=== PATIENT | female | born 1955 | race Caucasian/White ===

== ENCOUNTER → 2024-03-19 | Outpatient (CLI) | payer MEDICARE | END | disposition home or self-care (01) | LOC: LABPAT 11:40 | PROVIDERS: ATTEND Orthopaedic Surgery Sports Medicine | CPT/HCPCS: 85610; 85730 ==

== ENCOUNTER → 2025-01-19 | Outpatient (CLI) | payer MEDICARE, OTHER ==
[2025-01-19 11:01] LABS: INR 0.9 (<1.2); Partial Thromboplastin Time 24.3 sec (22.0-30.0); Prothrombin Time 10.3 sec (10.0-12.5)
[2025-01-19 15:15] LABS: HCT 41.3 % (37.2-46.3); HGB 13.8 g/dL (12.0-15.0); MCH 30.9 pg (27.0-32.0); MCHC 33.4 g/dL (32.0-37.0); MCV 92.6 FL (80.0-97.0); Mean Platelet Volume 10.1 FL (9.5-12.2); NRBC Per 100 WBC 0 X 10*3/uL (0.00-0.01); Platelet Count 286 X 10*3/uL (140-440); RBC 4.46 X 10*6/uL (4.10-5.20); RDW 13.2 % (11.5-14.5); WBC 7.39 X 10*3/uL (4.50-10.00)
[2025-01-19 15:32] LABS: ALT 16 U/L (8-44); AST 19 U/L (13-35); Albumin 4.4 g/dL (3.8-4.9); Alkaline Phosphatase 62 U/L (41-126); Calcium 9.9 mg/dL (8.7-10.3); Carbon Dioxide 26.3 mmol/L (21.6-31.8); Chloride 102 mmol/L (96-109); Globulin 2.2 g/dL (1.6-3.3); Glucose 106 mg/dL (70-110); Potassium 5.3 mmol/L (3.5-5.5); Sodium 140 mmol/L (135-145); Total Bilirubin 0.6 mg/dL (0.3-1.2); Total Protein 6.6 g/dL (6.2-8.2)
== END | disposition home or self-care (01) ==
LOC: LABPAT 09:11
PROVIDERS: ATTEND Orthopaedic Surgery Sports Medicine
DX: Z01.812 Encounter for preprocedural laboratory examination (principal)
CPT/HCPCS: 80053; 85027; 85610; 85730; 87070; 93005

== ENCOUNTER 2025-02-12 05:40 | Day surgery (SDC) | payer MEDICARE, OTHER ==
[~2025-02-12 05:40] MED LIST: TRANEXAMIC 1,000 MG/100ML-NACL 1,000 MG in SALINE 1 100ML.BAG IVPB PRN
[2025-02-12] MEDS ORDERED: LIDOCAINE 1% (10MG/ML) FOR IV START INTRADERMA PRN (06:08)
[2025-02-12] MEDS: LACTATED RINGERS 1,000 ML IV SCH ×3 (06:46→12:15)
[2025-02-12] MEDS: IV FLUID CONTINUATION 1,000 ML IV ONE (06:46)
[2025-02-12] MEDS: ACETAMINOPHEN TAB 500 MG TAB PO PRN (06:48)
[2025-02-12] MEDS: GABAPENTIN 300 MG CAP PO PRN (06:48)
[2025-02-12] MEDS: MELOXICAM 7.5 MG TAB PO PRN (06:48)
[2025-02-12] MEDS: ONDANSETRON 4 MG/2 ML VIAL IVP PRN (06:49)
[2025-02-12] MEDS: MIDAZOLAM 2 MG/2 ML VIAL IV ONE (07:02)
[2025-02-12] MEDS ORDERED: fentaNYL (PF) 50 MCG/ML 2 ML AMP ONE (07:25)
[2025-02-12] MEDS ORDERED: MIDAZOLAM 2 MG/2 ML VIAL ONE (07:25)
[2025-02-12] MEDS ORDERED: ROPIVACAINE 5 MG/ML 30 ML VIAL ONE (07:25)
[2025-02-12] MEDS ORDERED: GLYCOPYRROLATE 0.2 MG/ML 2 ML VIAL ONE (07:25)
[2025-02-12] MEDS ORDERED: PHENYLEPHRINE-0.9% NACL SYG 1,000 MCG/10 ML SYRINGE ONE (07:25)
[2025-02-12] MEDS ORDERED: KETAMINE HCL IN 0.9 % NACL 50 MG/5 ML SYRINGE ONE (07:25)
[2025-02-12] MEDS ORDERED: TRANEXAMIC 1,000 MG/100ML-NACL PREMIX BAG ONE (07:25)
[2025-02-12] MEDS ORDERED: PROPOFOL 10 MG/ML 20 ML VIAL IV ONE (07:25)
[2025-02-12] MEDS ORDERED: DEXAMETHASONE SOD PHOSPHATE 4 MG/ML 1 ML VIAL ONE (07:25)
[2025-02-12] MEDS: ceFAZolin 3,000 MG in SODIUM CHLORIDE 0.9% IRRIGATIO 3,000 ML IRRIGATION ONE (08:03)
[2025-02-12] MEDS: LACTATED RINGERS 1,000 ML IV ONE (09:27)
[2025-02-12] MEDS: HYDROmorphone 0.5 MG/0.5 ML SYRINGE IVP PRN ×2 (10:02→22:26)
[2025-02-12] MEDS ORDERED: HYDROmorphone 0.5 MG/0.5 ML SYRINGE IVP PRN ×2 (10:03)
[2025-02-12] MEDS ORDERED: MAGNESIUM HYDROXIDE 2,400 MG/30 ML CUP PO PRN (10:03)
[2025-02-12] MEDS ORDERED: NA PHOS,M-B/NA PHOS,DI-BA 133 ML ENEMA RECTAL PRN (10:03)
[2025-02-12] MEDS ORDERED: ONDANSETRON 4 MG/2 ML VIAL IVP PRN (10:03)
[2025-02-12] MEDS ORDERED: NALOXONE 0.4 MG/ML 1 ML VIAL IV PRN (10:03)
[2025-02-12] MEDS ORDERED: ACETAMINOPHEN TAB 325 MG TAB PO PRN (10:03)
--- NOTE | 2025-02-12 10:10 | XR ---
EXAMINATION TYPE: XR knee limited RT DATE OF EXAM: 02/12/2025 CLINICAL HISTORY: Postoperative evaluation Two views of the right knee are submitted. Identified are changes of total knee arthroplasty with femoral and tibial components appearing well seated. Postsurgical soft tissue changes are noted. Alignment is anatomic. [facility], , 02/12/2025 10:07 AM
[2025-02-12] MEDS: ROPIVACAINE 1,100 MG, SODIUM CHLORIDE 0.9% 500 ML 330 ML, EMPTY PAIN BALL 1 EACH MISCELLANE PRN (10:17)
--- NOTE | 2025-02-12 10:51 | OP ---
OPERATIVE REPORT DATE OF SERVICE : 02/12/2025 ROTARY DRUM TANNER: Taiwo Hsieh PA-C PREOPERATIVE DIAGNOSIS: Right knee osteoarthrosis. POSTOPERATIVE DIAGNOSIS: Right knee osteoarthrosis. OPERATION: Right total knee arthroplasty. ANESTHESIA: Spinal sedation. ESTIMATED BLOOD LOSS: 100 mL. TOURNIQUET TIME: 65 minutes at 250 mmHg. COMPLICATIONS: None apparent. DRAINS: None. DISPOSITION: Postanesthesia care unit. INDICATIONS: Fior is a very pleasant 69-year-old female with longstanding history of right knee pain. History and physical examination are consistent with advanced right knee osteoarthrosis. She has been through significant operative management up to this point. Further treatment options were discussed, and she has decided to go forward with right total knee arthroplasty. The risks of the procedure were discussed with her in detail. These risks include, but are not limited to risk of infection, nerve damage, bleeding, pain, and a small risk of deep vein thrombosis, which could lead to fatal pulmonary embolism. There is also small risk of loosening of the implant, which could require revision operation. The patient understands these risks. All of her questions with regard to the risks of procedure were answered to her satisfaction. Appropriate informed consent was obtained. DESCRIPTION OF PROCEDURE: The patient was identified in preoperative holding area. Surgical site was marked by both the patient and myself. She was given 2 g of Ancef IV prophylactic purposes. She was then transferred to the operative suite. She was placed supine on the operating table. A spinal anesthetic was then administered and dosed per the anesthesia without apparent complication. Examination under anesthesia was then performed. The patient was 2-3 degrees shy of full extension. She had 95 degrees of flexion in the medial collateral ligament, lateral collateral ligament. Posterior cruciate ligaments were stable. A tourniquet was then placed high on the right upper thigh well-padded in preparation for surgery. The patient's right lower extremity was then prepped and draped in usual sterile fashion. Standard surgical pause was undertaken to ensure that we were operating the correct site and that appropriate preoperative antibiotics were given. All staff were in agreement, and we proceeded. The outlines of the patella marked with a surgical pen. A planned 12 cm vertical incision centered over the patella was marked with a surgical pen. Leg was then exsanguinated with an Esmarch dressing. The knee was then flexed, and the tourniquet was inflated to 250 mmHg. Total tourniquet time for the procedure was 65 minutes. Incision was then made with a 10-blade scalpel. Dissection was carried down sharply to the overlying fascia. Great care was taken to minimize the skin flaps. The knee was then exposed using a standard medial parapatellar approach. A small cuff of quadriceps tendon was then left for suture suturing. She was in a bit of varus preoperatively. A standard medial release was then made. Superficial medial collateral ligament dissected off the bone around to the posterior aspect of the proximal tibia. The medial meniscus was then excised as well. The lateral meniscus was also released anteriorly. The leg was then externally rotated. The patella was everted. The knee was flexed. Retractors were then placed to protect the collateral ligaments. I then proceeded to remove the infrapatellar fat pad. This was excised sharply tangentially fibers of the patellar tendon. I then proceeded to remove the peripheral osteophytes. This was done with a rongeur. I then proceeded with the distal femoral resection. She did have near full extension. A planned 9 mm resection was then done. The femoral canal was then entered in the midline the femur approximately 10 mm anterior to the origin of the posterior cruciate ligament. The kate was then advanced down the center of the femur and placed intramedullary. Based on the preoperative radiographs, the angle between the anatomic and mechanical axis of the femur was approximately 4 to 5 degrees. The valgus angle of the distal femoral cutting guide was then set at 4 degrees for the right knee. The distal femoral cutting guide was then advanced over the intramedullary kate. This was seated firmly against the femur. I then as mentioned planned to take 9 mm off the distal femur. The cutting block was then secured onto the femur with pins. The jig was then removed. The distal femoral cut was made through the slot of the block. The pins were then removed and the distal femoral cutting block was removed. The accuracy of the distal femoral cuts was checked with 2 flat bars. I then proceeded with femoral sizing. Posterior referencing sizing guide was held firmly against the resected distal surface of the femur. The posterior condyles were resting on the posterior plane of the guide. The sizing guide was then placed on the anterior femur. The size was measured as a size 7. I then assessed for femoral rotation. Plan was for 3 degrees of external rotation. 3 degrees of external rotation was placed onto the jig. These holes were then marked. We then confirmed the rotation by three separate methods. This was done using epicondylar axis as well as Whitesides line and posterior referencing. It was deemed that the external rotation was proper. I then went forward with placement of the femoral cutting block. This was placed over the previously placed pin holes. The Hernandez wing was then placed onto the anterior slots to ensure that we would not notch the anterior femur with the anterior femoral cut. I then proceeded with the anterior femoral cut. This was flush with the anterior cortex of the femur. The posterior cuts were then made followed by the anterior chamfer cut, then the posterior chamfer cut. The cutting block was then removed. Throughout the resection, the collateral ligaments were protected with retractors. I then placed a trial size 7 femur. It was slightly wide, but the narrow fit very nicely, and it fit flush with the distal end of the femur. The drill holes were then made. I then proceeded with the tibial cut. I planned for cruciate-retaining knee. The guide was placed and set for varus-valgus and for slope. Height was set for approximate 2 mm resection from the medial tibial plateau, which was the lower side. I was happy with the alignment and amount of resection. The cutting block was then pinned to the proximal tibia. The alignment kate was removed and the proximal tibia was resected with reciprocating saw. Again, this was done with retractors protecting the collateral ligaments as well as the posterior cruciate ligament. I then proceeded to evaluate the flexion and extension gaps. A 10 mm block was then placed. The flexion and extension gaps were equal. I then proceeded with resection of posterior osteophytes. She had very extensive posterior osteophytes. This was done using a curved osteotome. This resected the posterior osteophytes and posterior capsular stripping was done off the posterior aspect of the femur at this time. The osteophytes were then removed. I then proceeded with resection of the patella. The thickness of the patella was measured using the caliper. The thickness was 22 mm. The thickness of the anticipated patellar dome was taken into account. Resection was then performed and confirmed to be equal in 4 quadrants using a caliper. Approximately 14 mm of bone remained after resection. A 29 x 8 mm standard patellar trial was then placed. The holes were drilled and the trial was then placed. I then proceeded with sizing tibial plate. A size D tibial plate fit very nicely. I then placed the trial femur, the tibial tray and the patellar button. A 10 mm trial tibial insert was also placed. The components fit very nicely. She had full extension and flexion. The extension and flexion gaps were equal and stable to both varus and valgus stress. The patella tracked appropriately. The tibial tray rotation was then marked with a Bovie. This was externally rotated properly. I then proceeded with tibial preparation. I first drilled the femoral holes and removed the femoral component. The tibial tray was then set for proper external rotation as well as medial and lateral placement onto the tibia. It was then pinned into place. I then proceeded with punching the keel. I then decided to proceed with cementing of all our components. The knee was thoroughly irrigated with sterile saline solution via pulse lavage. The lateral geniculate artery was identified and cauterized. All blood was removed from the bone of the tibia femur and patella with pulse lavage. I then proceeded with cementing. Two packs of antibiotic bone cement prepared on the back table by manager surgical. I then proceeded with cementing of the tibia first. The cement was impacted in the keel as well as deeply seated into the bone. A second coat cement was then placed. The tibia was then impacted into place. Excess cement was removed with [place]'s and jokers. I then proceeded with cementing of the femoral component. The femoral component was also cemented using standard technique. Excess cement was removed. A 10 mm trial insert was then placed into the knee. It was brought into full extension with a constant axial load placed until the cement had hardened. The patellar component was then cemented. This held firmly with compressive device until the cement had dried. When the cement had dried, the knee was taken out of extension. All excess cement was removed from around the prosthesis. I then trialed the knee with a 10 mm insert. Flexion and extension gaps were appropriate. The knee was stable. It came into full extension. I decided to go for the 10 mm medial congruent cross-linked cruciate- retaining tibial insert. Polyethylene was then placed onto the tibial tray and locked into place. The knee was then reduced. The knee was again further irrigated with sterile saline solution with antibiotic added. The tourniquet was then deflated. Total tourniquet time for the procedure was 65 minutes at 250 mmHg. Final components were Nataliia Persona size 7 narrow cruciate-retaining femoral component, a size D tibial tray, a 10 mm medial congruent cruciate-retaining polyethylene insert, and a 29 x 8 mm patella. I then proceeded with closure. Again, the knee was thoroughly irrigated. The quadriceps tendon and the medial retinaculum were reapproximated with #2 Ethibond suture. The extensor mechanism was then closed with a running #2 Quill suture. Subcutaneous tissues were closed with 2-0 Vicryl interrupted suture. The skin was closed with a running 3-0 Quill suture. Dermabond was applied to the incision. Sterile compressive dressings were applied. All sponge and needle counts deemed correct prior to closure. The patient tolerated the procedure without apparent complication. She was transferred to recovery room in stable condition. MMODL / IJN: [id number] /
[2025-02-12] MEDS: DEXAMETHASONE SOD PHOSPHATE 4 MG/ML 1 ML VIAL IV ONE (11:24)
[2025-02-12] MEDS: droPERidol 2.5 MG/ML VIAL IVP ONE (11:24)
[2025-02-12] MEDS: ONDANSETRON 4 MG/2 ML VIAL IVP ONE (11:25)
[2025-02-12] MEDS: MAGNESIUM OXIDE 400 MG TAB PO SCH (15:57)
[2025-02-12] MEDS: HYDROcodone/APAP 7.5-325MG 1 EACH TAB PO PRN (21:23)
[2025-02-12] MEDS: ASPIRIN 81 MG PO SCH (21:30)
[2025-02-12] MEDS: VITAMIN E (DL,TOCOPHERYL ACET) 400 UNIT (180 MG) CAP PO SCH (21:31)
[2025-02-12] MEDS: VIT B COMP PO SCH (21:31)
[2025-02-12] MEDS: SENNOSIDES-DOCUSATE SODIUM 1 EACH TAB PO SCH (21:31)
[2025-02-12] MEDS: FOLIC AC PO SCH (21:31)
[2025-02-12] MEDS: LEVOTHYROXINE 50 MCG TAB PO SCH (21:31)
[2025-02-12] MEDS: HERB PO SCH (21:31)
[2025-02-12] MEDS: [UNRECOGNIZED DRUG - OTHER] PO SCH (21:31)
--- NOTE | 2025-02-13 00:51 | CONS ---
CONSULTATION REASON FOR CONSULTATION: Advice regarding recent pneumonia, other multiple medical issues, requested by orthopedist. HISTORY OF PRESENT ILLNESS: This 69-year-old woman with a past medical history of multiple medical problems including hypothyroidism, was recently admitted to [facility] with pneumonia. The patient improved significantly. The patient underwent a right total knee arthroplasty. There is no history of fever, rigors, or chills. No history of cough or sputum at this time. PAST MEDICAL HISTORY: Hypothyroidism, history of recent pneumonia. Rest of history and chart are also reviewed. HOME MEDICATIONS: Reviewed. Include levothyroxine. Dose and rest medications reviewed. ALLERGIES: None known. FAMILY HISTORY: No history of heart disease or strokes in the family. SOCIAL HISTORY: Previous smoking. REVIEW OF SYSTEMS: 14-point review of systems is negative except as mentioned earlier. PHYSICAL EXAMINATION: VITAL SIGNS: Pulse is 66, blood pressure 131/81, and respirations 16. HEENT: Conjunctivae normal. NECK: No jugular venous distention. CARDIOVASCULAR: S1, S2. RESPIRATION: Breath sounds diminished at the bases. No rhonchi, no crackles. ABDOMEN: Soft, nontender. EXTREMITIES: Legs, status post right total knee arthroplasty. NERVOUS SYSTEM: Nonfocal. LABORATORY DATA: The previous labs in the computer reviewed within normal limits. ASSESSMENT: 1. Status post right total knee arthroplasty. 2. History of recent pneumonia, improved. 3. Hypothyroidism. 4. History of traumatic brain injury. 5. Remote history of nicotine dependence. RECOMMENDATION: This 69-year-old woman presented after surgery is medically stable. Recommend to resume the home medications, incentive spirometry, and DVT prophylaxis. We will follow the patient closely with you. The patient may be asked to follow up with the primary physician closely after discharge. Pain management. MMODL / IJN: [id number] /
--- NOTE | 2025-02-13 06:44 | P.ANPRN ---
Procedure Note - Anesthesia - Nerve Block Performed Right Adductor Canal Infusion Time Out Performed: Yes Date of Procedure: 02/12/25 Procedure Start Time: : Procedure Stop Time: : Location of Patient: PreOp Indication: Acute Post-Operative Pain, Requested by Surgeon Sedation Type: Sedate with meaningful contact maintained Preparation: Sterile Prep, Sterile Dressing Position: Supine Catheter: Indwelling Needle Types: Pajunk Needle Gauge: 21 Ultrasound used to visualize needle placement: Yes Ultrasound used to observe medication spread: Yes Blood Aspirated: No Pain Paresthesia on Injection Noted: No Resistance on Injection: Normal Image Stored and Saved: Yes Events: Uneventful and Well Tolerated (Ropivacaine 0.5% 20 cc was dexamethasone 4 mg)
--- NOTE | 2025-02-13 06:45 | P.ANPRN ---
Procedure Note - Anesthesia - Nerve Block Performed Right iPack Single Time Out Performed: Yes Date of Procedure: 02/12/25 Procedure Start Time: 07:10 Procedure Stop Time: 07:12 Location of Patient: PreOp Indication: Acute Post-Operative Pain, Requested by Surgeon Sedation Type: Sedate with meaningful contact maintained Preparation: Sterile Prep Position: Left Lateral Needle Types: Pajunk Needle Gauge: 21 Ultrasound used to visualize needle placement: Yes Ultrasound used to observe medication spread: Yes Blood Aspirated: No Pain Paresthesia on Injection Noted: No Resistance on Injection: Normal Image Stored and Saved: Yes Events: Uneventful and Well Tolerated (Ropivacaine 0.5% 20 cc plus dexamethasone 4 mg)
[2025-02-13] MEDS: HYDROcodone/APAP 7.5-325MG 1 EACH TAB PO PRN (06:55)
--- NOTE | 2025-02-13 06:56 | P.PN ---
Progress Note - Text 02/13/25 620am Status post total knee replacement by Dr. Hernandez. Patient has an postop pain control with a solution running at 8 cc of 1-2. Dressing clean dry and intact. Plan to continue On-Q pump infusion
[2025-02-13] MEDS: CALCIUM CARB-VIT D 500 MG-5 MCG TAB PO SCH (08:36)
[2025-02-13] MEDS: CHOLECALCIFEROL 25 MCG (1000 IU) TABLET PO SCH (08:37)
[2025-02-13] MEDS: FISH PO SCH (08:38)
[2025-02-13] MEDS: [UNRECOGNIZED DRUG - OTHER] PO SCH (08:38)
[2025-02-13] MEDS: DHA PO SCH (08:38)
[2025-02-13] MEDS: VIT A,C & E-LUTEIN-MINERALS 1 EACH TAB PO SCH (08:38)
[2025-02-13] MEDS: DPA PO SCH (08:38)
[2025-02-13] MEDS: COQ10 PO SCH (08:38)
[2025-02-13] MEDS: EPA PO SCH (08:38)
[2025-02-13] MEDS: OMEGA PO SCH (08:38)
[2025-02-13 09:32] LABS: Basophils # (A) 0.02 X 10*3/uL (0.00-0.10); Basophils % (A) 0.2 %; Eosinophils # (A) 0.01 X 10*3/uL (0.04-0.35); Eosinophils % (A) 0.1 %; HCT 33.0 % (37.2-46.3); HGB 10.9 g/dL (12.0-15.0); Immature Grans, Automated 0.40 %; Lymphocytes # (A) 1.90 X 10*3/uL (0.90-5.00); Lymphocytes % (A) 16.1 %; MCH 29.9 pg (27.0-32.0); MCHC 33.0 g/dL (32.0-37.0); MCV 90.4 FL (80.0-97.0); Monocytes # (A) 1.05 X 10*3/uL (0.20-1.00); Monocytes % (A) 8.9 %; NRBC Per 100 WBC 0 X 10*3/uL (0.00-0.01); Neutrophils # (A) 8.80 X 10*3/uL (1.80-7.70); Neutrophils % (A) 74.3 %; Platelet Count 227 X 10*3/uL (140-440); RBC 3.65 X 10*6/uL (4.10-5.20); RDW 13.1 % (11.5-14.5); WBC 11.83 X 10*3/uL (4.50-10.00)
[2025-02-13] MEDS: MULTIVITAMINS, THERA 1 EACH TAB PO SCH (11:08)
--- NOTE | 2025-02-13 11:28 | P.PN ---
Progress Note - Text Progress Note Date: 02/13/25 Orthopedics: History of present illness: Patient is a very pleasant 69-year-old female who is seen examined at the bedside for further evaluation of her right knee. She is status post right total knee arthroplasty performed yesterday, 02/12/2025, by Dr. Hernandez. Postoperatively, she is doing quite well. She has been able to ambulate well. Her pain in her right knee is well-controlled. She is very happy with her progress postoperatively. She was considering discharge to a rehabilitation facility, however, given her significant improvement already postoperatively, she feels she may be ready for discharge home tomorrow. She is utilizing an On- Q pain pump per anesthesia. She is very happy with her progress. She is being seen by medicine for her other medical diagnoses. Physical Exam Total Knee Arthroplasty: Status post surgical day number 1 Patient is awake, alert, and oriented 3 Vital signs stable Good chest excursion with deep inspiration and expiration Abdomen soft nontender No signs or symptoms of DVT; no calf pain Dressing is clean, dry, and intact; no erythema, purulence, or signs of infection over the right knee Patient has full foot and ankle motion without difficulty bilateral lower extremities Dorsiflexion, plantar flexion, and extensor hallucis longus positive sustained bilaterally Neurovascular status left lower extremity intact Assessment: Status post right total knee arthroplasty Right knee osteoarthritis Right knee pain Hypothyroidism History TBI Plan: 1. Patient to remain weight-bear as tolerated on the lower extremity with the assistance of a walker; patient may work with physical therapy to increase mobility and ambulation 2. Continue pain control with oral and IV pain medications. Plan to wean off IV medications in anticipation for discharge home tomorrow. 3. Medicine to continue following the patient for her other medical diagnoses 4. Patient to continue with anticoagulation therapy with aspirin 81 mg 1 tab twice daily 5. We'll continue to follow the patient. If she continues to improve, we will plan for discharge home tomorrow. 6. Patient can follow-up with Taiwo Hsieh PA-C or Dr. Stewart Hernandez in 10 days postoperatively at [facility] in 2-3 weeks following discharge
[2025-02-13] MEDS: traMADol 50 MG TAB PO PRN (20:15)
--- NOTE | 2025-02-13 23:39 | PN ---
PROGRESS NOTE DATE OF SERVICE: 02/13/2025 SUBJECTIVE: This is a 69-year-old woman who was admitted after right total knee arthroplasty improving significantly. No chest pain. No palpitation. No swelling is noted. OBJECTIVE: VITAL SIGNS: On exam; pulse 73, blood pressure 102/60, and respirations 18. CHEST: Clear to auscultation. ABDOMEN: Soft. LEGS: Status post knee arthroplasty. LABORATORY DATA: WBC 11.83. ASSESSMENT: 1. Status post right total knee arthroplasty. 2. History of recent pneumonia, improved. 3. Hypothyroidism. 4. History of traumatic brain injury. 5. Remote history of nicotine dependence. RECOMMENDATIONS: Recommend to continue current management and continue with pain management. Continue with incentive spirometry. Continue with DVT prophylaxis, otherwise rest of the recommendations per Orthopedic Surgery. MMODL / IJN: [id number] /
[2025-02-14 02:10] VITALS: RESP 16; TEMP 97.8
[2025-02-14 10:17] VITALS: BP 140/68; PULSE 77
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
[2025-02-15] MEDS ORDERED: LEVOTHYROXINE 25 MCG TAB PO SCH (06:30)
== END 2025-02-14 13:06 | disposition home health service (06) ==
LOC: OR 05:40 → 4SSUR 10:55 → OR 02-14 13:06
PROVIDERS: ATTEND Orthopaedic Surgery Sports Medicine
DX: M17.11 Unilateral primary osteoarthritis, right knee (principal); J18.9 Pneumonia, unspecified organism; E03.9 Hypothyroidism, unspecified; Z87.891 Personal history of nicotine dependence; Z96.651 Presence of right artificial knee joint; Z87.01 Personal history of pneumonia (recurrent); Z87.820 Personal history of traumatic brain injury; Z79.82 Long term (current) use of aspirin; Z79.890 Hormone replacement therapy; Z79.899 Other long term (current) drug therapy
CPT/HCPCS: 27447; 97162; 64448; 64473; 85025; 73560; C1776; C1713; C1751; J2250; J1100; J0690 ×2; J2405; J3010; J2795; J2704; J1171; J2371; J1596

== ENCOUNTER 2025-02-21 11:26 | Emergency (ER) | payer MEDICARE, OTHER ==
[2025-02-21 11:47] VITALS: RESP 20; TEMP 97.8
[2025-02-21] MEDS: SODIUM CHLORIDE 0.9% 1,000 ML IV ONE (12:18)
[2025-02-21] MEDS: KETOROLAC 15 MG/ML 1 ML VIAL IVP STA (12:19)
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
--- NOTE | 2025-02-21 12:22 | XR ---
Right knee HISTORY: Pain COMPARISON: 02/12/2025. TECHNIQUE: 3 views of the right knee were obtained. FINDINGS: There is a total right knee prosthesis in near anatomic alignment. There is no acute fracture or disl ocation. IMPRESSION: 1. No acute change. 2. Total right knee prosthesis [facility] Workstation: [email or web address], 02/21/2025 12:19 PM
[2025-02-21 14:31] VITALS: BP 128/69; PULSE 83
== END 2025-02-21 14:31 | disposition home or self-care (01) ==
LOC: EC 11:26
DX: G89.18 Other acute postprocedural pain (principal)
CPT/HCPCS: 73562; 99283; 96374; 96361; J1885

== ENCOUNTER 2025-02-22 11:42 | Observation (INO) | payer MEDICARE, OTHER ==
[2025-02-22 12:59] LABS: Basophils # (A) 0.06 10*3/uL (0.00-0.10); Basophils % (A) 0.7 %; Eosinophils # (A) 0.03 10*3/uL (0.04-0.35); Eosinophils % (A) 0.4 %; HCT 35.9 % (37.2-46.3); HGB 12.5 g/dL (12.0-15.0); Lymphocytes # (A) 1.52 10*3/uL (0.90-5.00); Lymphocytes % (A) 17.9 %; MCH 31.6 pg (27.0-32.0); MCHC 34.8 g/dL (32.0-37.0); MCV 90.9 fL (80.0-97.0); Monocytes # (A) 0.43 10*3/uL (0.20-1.00); Monocytes % (A) 5.1 %; Neutrophils # (A) 6.45 10*3/uL (1.80-7.70); Neutrophils % (A) 75.7 %; Platelet Count 394 10*3/uL (140-440); RBC 3.95 10*6/uL (4.10-5.20); RDW 13.2 % (11.5-14.5); WBC 8.51 10*3/uL (4.50-10.00)
[2025-02-22 13:00] LABS: Bilirubin,Urine Negative (Negative); Blood,Urine Negative (Negative); Color,Urine Colorless; Glucose,Urine (UA) Negative (Negative); Ketones,Urine Negative (Negative); Leukocyte Esterase,Urine Negative (Negative); Nitrite,Urine Negative (Negative); PH, Urine 7.5 (5.0-8.0); Protein,Urine Negative (Negative); Specific Gravity,Urine 1.003 (1.001-1.035); Urobilinogen,Urine <2.0 mg/dL (<2.0)
[2025-02-22 13:14] LABS: ALT 73 U/L (4-34); AST 48 U/L (14-36); African American GFR (CKD) >90 (>60 ml/min/1.73 sqM); Albumin 4.5 g/dL (3.5-5.0); Alkaline Phosphatase 85 U/L (38-126); Anion Gap 10 mmol/L; Blood Urea Nitrogen 9 mg/dL (7-17); Calcium 10.5 mg/dL (8.4-10.2); Carbon Dioxide 28 mmol/L (22-30); Chloride 99 mmol/L (98-107); Glucose 114 mg/dL (74-99); Non-African American GFR(CKD) >90 (>60 ml/min/1.73 sqM); Potassium 4.1 mmol/L (3.5-5.1); Sodium 137 mmol/L (137-145); Total Protein 6.9 g/dL (6.3-8.2)
[2025-02-22 15:13] LABS: INR 1.0 (<1.2); Partial Thromboplastin Time 23.1 sec (22.0-30.0); Prothrombin Time 10.7 sec (10.0-12.5)
[2025-02-22 15:35] LABS: Acetaminophen <10.0 ug/mL
--- NOTE | 2025-02-22 16:03 | CT ---
EXAMINATION TYPE: CT brain wo con DATE OF EXAM: 02/22/2025 3:53 PM COMPARISON: None. CLINICAL INDICATION: Female, 69 years old with history of dizziness, left leg parasethesias, dizzines s TECHNIQUE: Brain: Axial CT images of the brain were obtained with coronal and sagittal reformats created and rev iewed. Contrast used: None. Oral contrast used: None. CT DLP: 1215.6 mGycm, Automated exposure control for dose reduction was used. FINDINGS: Brain: Extra-axial spaces: No abnormal extra-axial fluid collections. Ventricular system: Dilatation in proportion to cerebral atrophy. Cerebral parenchyma: No acute intraparenchymal hemorrhage or mass effect. The avila-white junction is well differentiated. Scattered hypoattenuating areas are seen within the white matter. Cerebellum: Unremarkable. Mass effect: No evidence of midline shift. Intracranial vasculature: Atherosclerotic calcifications of the intracranial vessels. Soft tissues: Normal. Calvarium/osseous structures: No depressed skull fracture. Paranasal sinuses and mastoid air cells: Mild scattered paranasal sinus disease. Visualized orbits: Orbital contents are intact. IMPRESSION: 1. No acute intracranial process. 2. Nonspecific white matter changes, likely secondary to chronic small vessel ischemic disease. [facility], , 02/22/2025 4:01 PM
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
[2025-02-22] MEDS ORDERED: NALOXONE 0.4 MG/ML 1 ML VIAL IV PRN (16:58)
[2025-02-22] MEDS: SODIUM CHLORIDE 0.9% 1,000 ML IV ONE (17:51)
[2025-02-22] MEDS: SODIUM CHLORIDE 0.9% 1,000 ML IV SCH (17:52)
[2025-02-22] MEDS: CALCIUM CARB-VIT D 500 MG-5 MCG TAB PO SCH (20:30)
[2025-02-22] MEDS: ASCORBIC ACID 500 MG TAB PO SCH (20:30)
[2025-02-22] MEDS: VITAMIN E (DL,TOCOPHERYL ACET) 400 UNIT (180 MG) CAP PO SCH (20:31)
[2025-02-22] MEDS: CHOLECALCIFEROL 25 MCG (1000 IU) TABLET PO SCH (20:31)
[2025-02-22] MEDS: ASPIRIN 81 MG PO SCH (20:57)
[2025-02-22] MEDS: HYDROcodone/APAP 7.5-325MG 1 EACH TAB PO PRN (20:59)
[2025-02-22] MEDS ORDERED: DHA PO SCH (21:00)
[2025-02-22] MEDS ORDERED: [UNRECOGNIZED DRUG - OTHER] PO SCH (21:00)
[2025-02-22] MEDS ORDERED: VIT B COMP PO SCH (21:00)
[2025-02-22] MEDS ORDERED: [UNRECOGNIZED DRUG - OTHER] PO SCH (21:00)
[2025-02-22] MEDS ORDERED: FOLIC AC PO SCH (21:00)
[2025-02-22] MEDS ORDERED: HERB PO SCH (21:00)
[2025-02-22] MEDS ORDERED: EPA PO SCH (21:00)
[2025-02-22] MEDS ORDERED: OMEGA PO SCH (21:00)
[2025-02-22] MEDS ORDERED: FISH PO SCH (21:00)
[2025-02-22] MEDS ORDERED: DPA PO SCH (21:00)
[2025-02-22] MEDS ORDERED: COQ10 PO SCH (21:00)
[2025-02-23] MEDS: LEVOTHYROXINE 50 MCG TAB PO SCH (05:35)
[2025-02-23] MEDS: MAGNESIUM OXIDE 400 MG TAB PO SCH (09:20)
[2025-02-23] MEDS: MULTIVITAMINS, THERA 1 EACH TAB PO SCH (09:20)
[2025-02-23] MEDS: traMADol 50 MG TAB PO SCH (13:20)
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
--- NOTE | 2025-02-23 15:09 | P.PN ---
Progress Note - Text Progress Note Date: 02/23/25 I went to see the patient for dizziness. But patient states she does not need neurology service at this time since she states she had recent knee surgery and was on a lot of pain medication causing her dizziness. She feels the pain medication is culprit. I notified the primary team. If still neurology is needed please reconsult.
[2025-02-23] MEDS: ETODOLAC 400 MG TAB PO PRN (16:48)
[2025-02-23] MEDS: ACETAMINOPHEN TAB 500 MG TAB PO PRN (22:23)
[2025-02-24] MEDS: traMADol 50 MG TAB PO PRN (09:33)
--- NOTE | 2025-02-24 14:32 | P.DS ---
Providers Date of admission: 02/22/25 16:56 Expected date of discharge: 02/24/25 Attending physician: Dick Mills MD Consults: 02/22/25 16:59 Consult Physician Routine Consulting Provider: Stewart Hernandez Consult Reason/Comments: right knee pain, weakness, rehab placementq Do you want consulting provider notified?: Yes, Notify in am Primary care physician: Felix Flanagan Hospital Course: Discharge diagnoses; Right knee pain Recent right total knee replacement Dizziness Inability to take care of herself. Hypothyroidism Hospital course; 69-year-old lady with past medical history significant for right total knee arthroplasty presented the ER because of generalized weakness. Patient stated that she had right knee done on February 16, following that she was of the opinion that was able to take care of herself so she was discharged home with home care. Ongoing home patient had a hard time taking care of herself. Patient was having increasing right knee pain. Patient also complaining of dizziness. Patient denies any chest pain. There is no complaint of shortness of breath. Patient denies any palpitation. There is no complaint of orthopnea or PND. Denies any nausea, vomiting abdominal pain. There is no complaint of headache. Initial lab work done in the ER showed WBC 8.51, hemoglobin 12.5, platelet count 394, sodium 137, potassium 4.1, BUN 9, creatinine 0.46, glucose 114, calcium 10.5, AST 48, ALT 73, alk phos 85, troponin 0.012 UA negative for infection EKG done in the ER showed heart rate of 77, no ST segment elevation or depression seen, no T-wave inversions seen. CT head done showed no acute intracranial process Patient admitted to internal medicine service 02/24. Patient seen examined. PT and OT evaluated, patient is doing much better, does not qualify for rehab. Being discharged home with home care PHYSICAL EXAMINATION: GENERAL: The patient is alert and oriented x3, not in any acute distress. Well developed, well nourished. HEENT: Pupils are round and equally reacting to light. EOMI. No scleral icterus. No conjunctival pallor. Normocephalic, atraumatic. No pharyngeal erythema. No thyromegaly. CARDIOVASCULAR: S1 and S2 present. No murmurs, rubs, or gallops. PULMONARY: Chest is clear to auscultation, no wheezing or crackles. ABDOMEN: Soft, nontender, nondistended, normoactive bowel sounds. No palpable organomegaly. MUSCULOSKELETAL: Right knee surgical incision EXTREMITIES: No cyanosis, clubbing, or pedal edema. NEUROLOGICAL: Gross neurological examination did not reveal any focal deficits. SKIN: No rashes. Dictation was produced using [employer] dictation software. please excuse any grammatical, word or spelling errors. Patient Condition at Discharge: Good Plan - Discharge Summary Discharge Rx Participant: No New Discharge Prescriptions: New Etodolac [Lodine] 400 mg PO BID PRN 7 Days #14 tab PRN Reason: Pain Continue Magnesium 200 tab PO BID Ascorbic Acid [Vitamin C] 250 tab PO BID [place]-3/Dha/Epa/Dpa/Fish/Coq10 [[place]-3 2100 Coq10 Softgel] 1 cap PO BID Calcium Carbonate/Vitamin D3 [Calcium 600 mg-Vit D3 10 mcg (400 Unit)] 1 tab PO BID Ondansetron [Zofran] 4 mg PO Q8HR PRN #21 tab PRN Reason: Nausea Diclofenac Sodium [Voltaren] 75 mg PO BID PRN #30 tab PRN Reason: Pain Acetaminophen Tab [Tylenol] 1,000 mg PO Q4H PRN PRN Reason: Pain Or Fever > 100.5 Sennosides/Docusate Sodium [Senna Plus 8.6-50 mg Softgel] 1 cap PO HS Multivitamin 50+ With Eye Healh 1 tab PO DAILY HYDROcodone/APAP 7.5-325MG [[place] 7.5-325] 0.5 - 2 tab PO Q6HR PRN PRN Reason: Pain Aspirin [Adult Low Dose Aspirin EC] 81 mg PO HS Levothyroxine Sodium [Synthroid] 25 mcg PO MARINO Levothyroxine Sodium [Synthroid] 50 mcg PO DAILY Vitamin E (Dl,Tocopheryl Acet) [Vitamin E (400 Iu = 180 mg)] 400 unit PO BID Vit B Comp/Folic AC/C/Herb 293 [Alive B-Complex Gummy] 1 tab PO BID Cholecalciferol (Vitamin D3) [Vitamin D3 (50 Mcg = 2000 Iu) Chew Tab] 50 mcg PO BID Discharge Medication List Levothyroxine Sodium [Synthroid] 50 mcg PO DAILY 04/07/24 [History] Ascorbic Acid [Vitamin C] 250 tab PO BID 02/06/25 [History] Calcium Carbonate/Vitamin D3 [Calcium 600 mg-Vit D3 10 mcg (400 Unit)] 1 tab PO BID 02/06/25 [History] Cholecalciferol (Vitamin D3) [Vitamin D3 (50 Mcg = 2000 Iu) Chew Tab] 50 mcg PO BID 02/06/25 [History] Magnesium 200 tab PO BID 02/06/25 [History] [place]-3/Dha/Epa/Dpa/Fish/Coq10 [[place]-3 2100 Coq10 Softgel] 1 cap PO BID 02/06/25 [History] Vit B Comp/Folic AC/C/Herb 293 [Alive B-Complex Gummy] 1 tab PO BID 02/06/25 [History] Vitamin E (Dl,Tocopheryl Acet) [Vitamin E (400 Iu = 180 mg)] 400 unit PO BID [History] Ondansetron [Zofran] 4 mg PO Q8HR PRN #21 tab 02/12/25 [Rx] Diclofenac Sodium [Voltaren] 75 mg PO BID PRN #30 tab 02/21/25 [Rx] Acetaminophen Tab [Tylenol] 1,000 mg PO Q4H PRN 02/22/25 [History] Aspirin [Adult Low Dose Aspirin EC] 81 mg PO HS 02/22/25 [History] HYDROcodone/APAP 7.5-325MG [[place] 7.5-325] 0.5 - 2 tab PO Q6HR PRN 02/22/25 [History] Levothyroxine Sodium [Synthroid] 25 mcg PO MARINO 02/22/25 [History] Multivitamin 50+ With Eye Healh 1 tab PO DAILY 02/22/25 [History] Sennosides/Docusate Sodium [Senna Plus 8.6-50 mg Softgel] 1 cap PO HS 02/22/25 [History] Etodolac [Lodine] 400 mg PO BID PRN 7 Days #14 tab 02/24/25 [Rx] Follow up Appointment(s)/Referral(s): Felix Flanagan [Primary Care Provider] - 1-2 days Stewart Hernandez MD [STAFF PHYSICIAN] - 10 Days Activity/Diet/Wound Care/Special Instructions: Weight bear as tolerated May shower Keep wound clean and dry Take meds as directed F/U with Dr. Hernandez in office Discharge Disposition: HOME WITH HOME HEALTH SERVICES
[2025-02-25 05:12] LABS: Glucose,Whole Blood 109 mg/dL (70-110)
[2025-02-25 07:52] VITALS: BP 155/83; PULSE 72; RESP 18; TEMP 97.8
[2025-03-01] MEDS ORDERED: LEVOTHYROXINE 25 MCG TAB PO SCH (06:30)
== END 2025-02-25 12:13 | disposition home health service (06) ==
LOC: EC 11:42 → 5NMEDONC 16:56
PROVIDERS: ADMIT Internal Medicine; ATTEND Internal Medicine
DX: M25.561 Pain in right knee (principal); G89.18 Other acute postprocedural pain; R42 Dizziness and giddiness; E03.9 Hypothyroidism, unspecified; Z79.890 Hormone replacement therapy; Z87.891 Personal history of nicotine dependence; Z79.82 Long term (current) use of aspirin; Z96.651 Presence of right artificial knee joint
CPT/HCPCS: 99285; 36415; 93005; 97161; 97165; 80053; 84443; 84484; 85025; 85610; 85730; 81003; 80143; 70450; G0378 ×4